=== PATIENT | female | born 1955 | race Caucasian/White ===

== ENCOUNTER → 2020-01-03 12:19 | Outpatient (BNVA) | payer MEDICAID, SELFPAY | PROVIDERS: PCP Internal Medicine; Referring Provider Internal Medicine; Visit Provider Orthopaedic Surgery | DX: Z76.89 Persons encountering health services in other specified circumstances (principal) ==

== ENCOUNTER 2020-04-06 08:54 | Outpatient (REF) | payer MEDICAID, SELFPAY | END 2020-04-06 08:55 | disposition home or self-care (01) | LOC: HO.HOSX 08:54 | PROVIDERS: Visit Provider Orthopaedic Surgery | DX: Z13.89 Encounter for screening for other disorder (principal) ==

== ENCOUNTER 2020-04-13 08:50 | Outpatient (REF) | payer MEDICAID, SELFPAY | END 2020-04-13 08:51 | disposition home or self-care (01) | LOC: HO.HOSX 08:50 | PROVIDERS: Visit Provider Orthopaedic Surgery | DX: Z96.611 Presence of right artificial shoulder joint (principal); Z98.890 Other specified postprocedural states | CPT/HCPCS: 99212 ==